=== PATIENT | female | born 1975 | race Caucasian/White ===

== ENCOUNTER 2016-11-18 00:26 | Day surgery (SDC) | payer OTHER ==
[2016-11-16 11:26] VITALS: BP 103/69
[2016-11-16 12:17] LABS: BASOPHIL # 0.1 10^3/uL (0.0-0.1); BASOPHIL % 0.5 % (0.0-0.2); EOSINOPHIL # 0.2 10^3/uL (0.0-0.2); EOSINOPHIL % 2.4 % (0.0-5.0); HEMOGLOBIN 14.6 g/dL (12.0-15.0); LYMPHOCYTES # 3.3 10^3/uL (1.0-4.8); LYMPHOCYTES % 32.5 % (24.0-44.0); MEAN CELL HGB 33.3 pg (26-34); MEAN CELL HGB CONCENTRATION 33.2 g/dL (33-37); MEAN CORP VOLUME 100.2 fL (78-100); MEAN PLATELET VOLUME 10.3 fL (7.8-11.0); MONOCYTES # 0.6 10^3/uL (0.3-0.8); MONOCYTES % 5.8 % (5.0-12.0); NEUTROPHIL # 5.9 10^3/uL (1.8-7.7); NEUTROPHILS % 58.6 % (41.0-85.0); RED CELL DISTRIBUTION WIDTH 12.4 % (11.5-14.5); WHITE BLOOD CELL 10.1 10^3/uL (4.5-11.0)
[2016-11-16 12:34] LABS: CALCIUM 7.8 mg/dL (8.4-10.5); CARBON DIOXIDE 24.9 mmol/L (20.0-32); GLUCOSE 124 mg/dL (70-110)
[2016-11-18] VITALS (10 sets, daily range): BP systolic 109–151; BP diastolic 49–98
[~2016-11-18] VITALS: Ht 165.1 cm; Wt 70.3 kg
[~2016-11-18 00:26] MED LIST: ACET-687 PO; ACET1TAB38 PO; CALC600T4 PO; DICY10CA3 PO; GABA100C7 PO; LORA1TAB PO; LOSA50TA6 PO; MELO7.5T5 PO; METO25TA4 PO; METO50TA2 PO; MULT1TAB52 PO; OMEG500C PO; ONDA4TAB10 SL; SERT100T PO
[2016-11-18] MEDS ORDERED: LACTATED RINGERS 1,000 ML ONE (05:12)
[2016-11-18] MEDS ORDERED: VERSED ONE (06:53)
[2016-11-18] MEDS ORDERED: ZOFRAN ONE (06:54)
[2016-11-18] MEDS ORDERED: DIPRIVAN IV ONE (06:54)
[2016-11-18] MEDS ORDERED: SUBLIMAZE ONE (06:55)
[2016-11-18] MEDS: LACTATED RINGERS 1,000 ML IV SCH (07:37)
[2016-11-18] MEDS ORDERED: VALIUM ONE (07:40)
[2016-11-18] MEDS: VALIUM PO STA (07:44)
[2016-11-18] MEDS ORDERED: SODIUM CHLORIDE IR ONE (08:43)
[2016-11-18] MEDS ORDERED: LIDOCAINE 1% VIAL ONE (09:10)
[2016-11-18] MEDS ORDERED: NORCO 5MG PO ONE (10:29)
[2016-11-18] MEDS: NORCO 5MG PO STA (10:33)
[2016-11-18] MEDS ORDERED: ACET-687 PO (10:43)
[2016-11-18] MEDS ORDERED: DIAZ5TAB PO (10:44)
--- NOTE | 2016-11-18 11:35 | OPH ---
DATE OF SURGERY: 11/18/2016 PREOPERATIVE DIAGNOSES: 1. Left carpal tunnel syndrome. 2. Left cubital tunnel syndrome. POSTOPERATIVE DIAGNOSES: 1. Left carpal tunnel syndrome. 2. Left cubital tunnel syndrome. OPERATIVE PROCEDURE: 1. Left carpal tunnel release. 2. Left cubital tunnel release. SURGEON: Claude Voss MD ANESTHESIA: LMA. TOURNIQUET TIME: 31 minutes at 300 mmHg. DRAINS: None. BLOOD LOSS: 5 mL. DESCRIPTION OF INDICATIONS: The patient is a 41-year-old female. She has had numbness and paresthesias in all fingers of her left hand since 2013. Her symptoms have worsened in the last several months. She has tried bracing in the past as well as Medrol Dosepak. The patient's elbow has full range of motion. There is no subluxation of the ulnar nerve through the cubital tunnel. She has a positive Tinel sign about the cubital tunnel as well as a positive sustained elbow flexion test. She had some EMGs and nerve conduction studies done in 2009, which were positive for left cubital tunnel syndrome. The patient also had a positive median nerve compression test as well as a positive Phalen and a positive Tinel sign about the carpal tunnel region. She had no atrophy of the thenar eminence. The patient clinically was felt to have classic carpal tunnel syndrome as well as cubital tunnel syndrome. She was taken to the operating room for the above procedures. DESCRIPTION OF PROCEDURE: The patient was placed on the operating table in the supine position. An LMA anesthetic was induced without difficulty. Well-padded tourniquet was placed around the left upper extremity. Left upper extremity was then sterilely prepped and draped. The arm was exsanguinated with an Esmarch and then the tourniquet was inflated to 300 mmHg with a good bounce. The patient then had a longitudinal incision made about the base of the palm. Incision was taken through the skin and the subcutaneous tissue. The palmar fascia was identified and opened proximally. A [place] elevator was then passed beneath the transverse carpal ligament to protect the nerve as well as the flexor tendons. Transverse carpal ligament was then released through the carpal tunnel region proximally and distally. The nerve was visualized and there was no iatrogenic damage. The wounds were copiously irrigated. The skin edges were injected with some 1% lidocaine plain. The wound was then closed with interrupted 3-0 Ethilon in a horizontal mattress method. A compressive dressing was applied. We then turned our attention to the medial aspect of the left elbow. An incision was made about the inferior border of the medial epicondyle. Incision was taken through the skin and the subcutaneous tissues. The ulnar nerve was identified proximally and then released throughout the cubital tunnel. The elbow was then taken through a full range of motion multiple times and there was no subluxation of the ulnar nerve. The wounds were irrigated and the skin edges were injected with 1% lidocaine plain. The wound was then closed with interrupted 3-0 Ethilon. A compressive dressing was applied. The tourniquet was released. She was extubated in the operating room and sent to recovery in stable condition. Claude Voss MD DR: NILDA/ernie JOB# [id number]
== END 2016-11-18 11:02 | disposition home or self-care (01) ==
LOC: SDC 00:26
PROVIDERS: ATTEND Orthopaedic Surgery
DX: G56.02 Carpal tunnel syndrome, left upper limb (principal); G56.22 Lesion of ulnar nerve, left upper limb; I10 Essential (primary) hypertension; F41.9 Anxiety disorder, unspecified; Z90.710 Acquired absence of both cervix and uterus; Z98.51 Tubal ligation status
CPT/HCPCS: 36415; 64718; 64721; 80048; 85025; 93005; J2250; J2405; J3010; J3490; J7030; J7120; J2001

== ENCOUNTER → 2017-08-15 | Outpatient (CLI) | payer OTHER ==
[~2017-08-15] MED LIST changes: +DIAZ5TAB PO
--- NOTE | 2017-08-15 13:44 | DIREP ---
PROCEDURE:CHEST 2 VIEWS COMPARISON:[facility], EVELINA, XRAY NECK SOFT TISSUE, 08/15/2017, 11:51 AM. [facility], EVELINA, XRAY CHEST SINGLE VW, 03/18/2017, 02:26 PM. INDICATIONS:NICOTINE DEPENDENCE FINDINGS: LUNGS/PLEURA:No significant pulmonary parenchymal abnormalities. No effusions. VASCULATURE:Normal. Unremarkable pulmonary vasculature. CARDIAC:Normal. No cardiac silhouette abnormality or cardiomegaly. MEDIASTINUM:Normal. No visible mass or adenopathy. BONES:Normal. No fracture or visible bony lesion. OTHER:Negative. CONCLUSION:Normal examination. Dictated by: Mickey Reyes M.D. on 08/15/2017 at 01:43 PM
--- NOTE | 2017-08-15 13:45 | DIREP ---
PROCEDURE:XRAY NECK SOFT TISSUES COMPARISON:None. INDICATIONS:OTALGIA TECHNIQUE: Frontal and lateral views FINDINGS: Nasopharynx:Normal. Oropharynx:Normal. Larynx and hypopharynx: Normal. Subglottic airway:Normal. Retropharyngeal soft tissues:Normal. Adenoids:Normal Epiglottis:Normal Other:Negative. CONCLUSION:Normal examination. Dictated by: Mickey Reyes M.D. on 08/15/2017 at 01:44 PM
== END | disposition home or self-care (01) ==
LOC: RAD 11:29
PROVIDERS: ATTEND Nurse Practitioner Family
DX: H92.01 Otalgia, right ear (principal); F17.200 Nicotine dependence, unspecified, uncomplicated
CPT/HCPCS: 70360; 71020

== ENCOUNTER → 2018-02-15 | Outpatient (CLI) | payer BC, OTHER ==
--- NOTE | 2018-02-15 17:36 | DIREP ---
PROCEDURE:MAMMO BILATERAL SCREENING COMPARISON:None. INDICATIONS:SCREENING TECHNIQUE:Digital CC, MLO and Jair views are obtained. The mammogram has had a secondary review by computer aided detection (CAD). BREAST COMPOSITION:There are scattered areas of fibroglandular density FINDINGS:There are no visible suspicious masses, clustered calcifications or architectural changes to suggest malignancy. CONCLUSION:There is no mammographic evidence of malignancy. RECOMMENDATIONS:Routine age-appropriate screening. OVERALL FINAL ASSESSMENT:BI-RADS 1: Negative Note: This facility participates in a mammography screening patient reminder system. Dictated by: Deandre Parada M.D. on 02/15/2018 at 05:33 PM
== END | disposition home or self-care (01) ==
LOC: RAD 10:49
PROVIDERS: ATTEND Nurse Practitioner Family
DX: Z12.31 Encounter for screening mammogram for malignant neoplasm of breast (principal)
CPT/HCPCS: 77067

== ENCOUNTER → 2018-03-16 | Outpatient (CLI) | payer BC ==
--- NOTE | 2018-03-16 10:18 | DIREP ---
PROCEDURE:US ABDOMEN LIMITED(SINGLE ORGAN-QUAD) COMPARISON:None. INDICATIONS:R10.11 RUQ PAIN FINDINGS: CBD:0.4 cm GALLBLADDER:0.3 cm RIGHT KIDNEY:10.2 x 4.6 x 5.1 cm PANCREAS:The pancreatic tail is obscured by bowel gas shadowing. LIVER:Normal hepatic parenchymal architecture. No focal hepatic masses. Hepatopetal flow in the portal vein. GALLBLADDER:There is sludge present in the dependent portion of the gallbladder. No evidence for gallbladder wall thickening or pericholecystic fluid. BILIARY:There is no biliary ductal dilatation. RIGHT KIDNEY:Normal. No hydronephrosis. OTHER:Negative. No ascites is identified. CONCLUSION:Sludge in the lumen of the gallbladder. No evidence for gallbladder wall thickening or pericholecystic fluid. Dictated by: SAIMA Physician on 03/16/2018 at 09:38 AM ld
== END | disposition home or self-care (01) ==
LOC: RAD 08:34
PROVIDERS: ATTEND Nurse Practitioner Family
DX: R10.11 Right upper quadrant pain (principal)
CPT/HCPCS: 76705

== ENCOUNTER → 2018-03-29 | Outpatient (CLI) | payer BC ==
[~2018-03-29] MED LIST changes: -METO50TA2 PO; +METO50TA6 PO
--- NOTE | 2018-03-29 10:42 | DIREP ---
PROCEDURE:NM GALLBLADDER SCAN/MADRID COMPARISON:None. INDICATIONS:ruq PAIN TECHNIQUE:After obtaining the patient's consent, radiopharmaceutical was injected and images obtained sequentially for one hour. PHARMACEUTICAL(S):7.53 mCi Tc-99m DANA derivative. 8 oz of Ensure FINDINGS: LIVER:Normal. BILIARY DUCTS:Normal. Visualized at 10 minutes. GALLBLADDER:Normal. Visualized at pattern minutes INTESTINE:Normal. Visualized at 25 minutes EJECTION FRACTION:48 %. Normal is greater than 50% at 15-20 minutes, EF between 35%-50% is equivocal. Administration of CCK resulted in no symptoms. There is a large amount of activity noted within the stomach at 30 and 35 minutes consistent with copious enterogastric reflux. CONCLUSION: 1. Gallbladder ejection fraction is measured at 48 %, near normal. 2. Copious enteric gastric reflux is identified which could be a source of symptoms. Dictated by: Rodney Daniel MD on 03/29/2018 at 10:34 AM
== END | disposition home or self-care (01) ==
LOC: NM 03-22 08:43 → RAD 08:35
PROVIDERS: ATTEND Nurse Practitioner Family
DX: K83.9 Disease of biliary tract, unspecified (principal)
CPT/HCPCS: 78227; A9537